=== PATIENT | male | born 1975 | race Caucasian/White ===

== ENCOUNTER 2018-05-23 17:20 | Emergency (ER) | payer SELFPAY ==
[~2018-05-23] VITALS: Ht 175.3 cm; Wt 114.3 kg
[2018-05-23 17:29] VITALS: BP 139/76
[2018-05-23] MEDS ORDERED: IBUPROFEN 100 MG/5 ML ORAL.SUSP. PO ONE (17:30)
[2018-05-23] MEDS ORDERED: CLOB15OI TP (18:27)
[2018-05-23] MEDS ORDERED: diphenhydrAMINE 50 MG/ML VIAL IM ONE (18:30)
[2018-05-23] MEDS ORDERED: methylPREDNISolone SOD SUCC PF 125 MG/2 ML VIAL. IM ONE (18:30)
--- NOTE | 2018-05-23 18:34 | ED.ADGEN ---
Past History Past Medical History: No Pertinent History Past Surgical History: No Surgical History Alcohol Use: None Drug Use: None Adult General Chief Complaint Chief Complaint Poison mayelin HPI HPI 42 years old male presented to the emergency department with the poison mayelin started this afternoon hives all over the body itching no shortness breath or difficulty breathing Review of Systems Review of Systems Constitutional: Denies fever or chills [] Eyes: Denies change in visual acuity, redness, or eye pain [] HENT: Denies nasal congestion or sore throat [] Respiratory: Denies cough or shortness of breath [] Cardiovascular: No additional information not addressed in HPI [] GI: Denies abdominal pain, nausea, vomiting, bloody stools or diarrhea [] : Denies dysuria or hematuria [] Musculoskeletal: Denies back pain or joint pain [] Integument: Denies rash or skin lesions [] Current Medications Current Medications Current Medications Medications (Trade) Dose Ordered Sig/Sam Start Time Stop Time Status Last Admin Dose Admin Diphenhydramine HCl (Benadryl) 50 mg 1X ONCE 05/23/18 18:30 05/23/18 18:31 05/23/18 18:27 50 MG Ibuprofen (Motrin) 100 mg 1X ONCE 05/23/18 17:30 05/23/18 17:30 DC Methylprednisolone Sodium Succinate (SOLU-Medrol 125MG VIAL) 125 mg 1X ONCE 05/23/18 18:30 05/23/18 18:31 05/23/18 18:27 125 MG Allergies Allergies Allergies Coded Allergies Type Severity Reaction Last Updated Verified No Known Allergies Allergy Unknown 05/23/18 Yes Physical Exam Physical Exam Constitutional: Well developed, well nourished, no acute distress, non-toxic appearance. [] HENT: Normocephalic, atraumatic, bilateral external ears normal, oropharynx moist, no oral exudates, nose normal. [] Eyes: PERRLA, EOMI, conjunctiva normal, no discharge. [] Neck: Normal range of motion, no tenderness, supple, no stridor. [] Cardiovascular:Heart rate regular rhythm, no murmur [] Lungs & Thorax: Bilateral breath sounds clear to auscultation [] Abdomen: Bowel sounds normal, soft, no tenderness, no masses, no pulsatile masses. [] Skin: Hives all over Back: No tenderness, no CVA tenderness. [] Extremities: No tenderness, no cyanosis, no clubbing, ROM intact, no edema. [] Neurologic: Alert and oriented X 3, normal motor function, normal sensory function, no focal deficits noted. [] Psychologic: Affect normal, judgement normal, mood normal. [] Current Patient Data Vital Signs Vital Signs Date Time Temp Pulse Resp B/P (MAP) Pulse Ox O2 Delivery O2 Flow Rate FiO2 05/23/18 17:29 98.0 69 18 98 Room Air EKG EKG [] Radiology/Procedures Radiology/Procedures [] Course & Med Decision Making Course & Med Decision Making Pertinent Labs and Imaging studies reviewed. (See chart for details) [] Final Impression Final Impression [] Problems: (1) Poison mayelin Dragon Disclaimer Dragon Disclaimer This electronic medical record was generated, in whole or in part, using a voice recognition dictation system. GABBY RAMIREZ MD May 23, 2018 18:34
== END 2018-05-23 18:36 | disposition home or self-care (01) ==
LOC: ER 17:20
DX: L23.7 Allergic contact dermatitis due to plants, except food (principal)
CPT/HCPCS: 96372; 99283; J1200; J2930

== ENCOUNTER 2021-03-04 09:58 | Emergency (ER) | payer SELFPAY ==
[~2021-03-04] VITALS: Ht 177.8 cm; Wt 122.0 kg
[~2021-03-04 09:58] MED LIST: CLOB15OI TP
[2021-03-04 10:13] VITALS: BP 165/93
[2021-03-04] MEDS ORDERED: DIPH,PERTUSS(ACELL),TET VAC/PF 0.5 ML SYRINGE. VAX IM ONE (10:30)
[2021-03-04] MEDS ORDERED: MUPI22OI2 TP (10:41)
[2021-03-04] MEDS ORDERED: CEPH500T PO (10:41)
--- NOTE | 2021-03-04 10:41 | PHYS DOC ---
Past History Past Medical History: No Pertinent History Past Surgical History: No Surgical History Alcohol Use: None Drug Use: None Adult General Chief Complaint Chief Complaint: ABSCESS HPI HPI Patient is a 45-year-old male patient who presents to the ED today with an abscess on the back of the head that begun 3 days ago. Patient states the abscess opened up today and started draining. Denies any fever. Review of Systems Review of Systems Constitutional: Denies fever or chills [] Musculoskeletal: Denies back pain or joint pain [] Integument: Abscess in the back of the head Neurologic: Denies headache, focal weakness or sensory changes [] All other systems were reviewed and found to be within normal limits, except as documented in this note. Current Medications Current Medications Current Medications Medications (Trade) Dose Ordered Sig/Sam Start Time Stop Time Status Last Admin Dose Admin Diphtheria/ Pertussis/Tetanus Vacc (ADACEL TDap SYRINGE) 0.5 ml ONCE ONCE 03/04/21 10:30 03/04/21 10:31 DC Allergies Allergies Allergies Coded Allergies Type Severity Reaction Last Updated Verified No Known Allergies Allergy Unknown 05/23/18 Yes Physical Exam Physical Exam Constitutional: Well developed, well nourished, no acute distress, non-toxic appearance. [] sses. [] Skin: Right posterior occipital with an indurated cellulitic area roughly 2 x 2 cm. The center is open and draining yellow purulent material. I was able to express the pus from the region. Back: No tenderness, no CVA tenderness. [] Extremities: No tenderness, no cyanosis, no clubbing, ROM intact, no edema. [] Neurologic: Alert and oriented X 3, normal motor function, normal sensory function, no focal deficits noted. [] Psychologic: Affect normal, judgement normal, mood normal. [] Current Patient Data Vital Signs Vital Signs Date Time Temp Pulse Resp B/P (MAP) Pulse Ox O2 Delivery O2 Flow Rate FiO2 03/04/21 10:13 98.8 81 18 165/93 (117) 98 Room Air EKG EKG [] Radiology/Procedures Radiology/Procedures Indication: Left occipital abscess Procedure: The patient was positioned appropriately and the skin over the incision site was cleaned with NS. Local anesthesia was N/A. I was able to e xpress pus from the area with no issues.the area was covered with a Band-Aid The patient tolerated the procedure well Complications: None Heart Score C/O Chest Pain: N/A Risk Factors: Risk Factors: DM, Current or recent (<one month) smoker, HTN, HLP, family history of CAD, obesity. Risk Scores: Risk Factors: DM, Current or recent (<one month) smoker, HTN, HLP, family history of CAD, obesity. Course & Med Decision Making Course & Med Decision Making Pertinent Labs and Imaging studies reviewed. (See chart for details) This is a 45-year-old male patient presented to the ED today with an abscess on the right occipital likely folliculitis. I was able to drain it in the ED. He was put on mupirocin and cephalexin. Tetanus updated. Wound care instructions and return precautions provided Dragon Disclaimer Dragon Disclaimer This electronic medical record was generated, in whole or in part, using a voice recognition dictation system. Departure Departure: Impression: Primary Impression: Folliculitis barbae Disposition: HOME / SELF CARE / HOMELESS Condition: STABLE Referrals: PCP,NO (PCP) follow up with your doctor in 1-2 weeks Patient Instructions: Folliculitis-SportsMed Additional Instructions: You have a wound on the back of your head that is open and draining. Please keep the area clean and dry. You can shower and wash your head once or twice a day. Apply warm compresses to the area 3 times a day. Use the prescribed antibiotics as ordered. Follow-up with your own doctor in 1 week Scripts Cephalexin (CEPHALEXIN) 500 Mg Tablet 1 TAB PO TID, #30 TAB Prov: SHILA LUIS SCRAP HOIST OPERATOR 03/04/21 Mupirocin (MUPIROCIN) 22 Gm Oint...g. 1 JIMMIE TP TID, #22 GM Prov: SHILA LUIS SCRAP HOIST OPERATOR 03/04/21 SHILA LUIS SCRAP HOIST OPERATOR Mar 04, 2021 10:41
== END 2021-03-04 10:58 | disposition home or self-care (01) ==
LOC: ER 09:58
DX: L73.9 Follicular disorder, unspecified (principal); L02.811 Cutaneous abscess of head [any part, except face]
CPT/HCPCS: 10060; 90471; 90715; 99283